=== PATIENT | female | born 1975 | race African-American/Black ===

== ENCOUNTER 2022-07-26 13:24 | Emergency (ER) | payer OTHER ==
[~2022-07-26] VITALS: Ht 167.6 cm; Wt 72.0 kg
[2022-07-26] MEDS ORDERED: ONDANSETRON HCL 4MG/2ML INJ IV ONE (15:15)
[2022-07-26] MEDS ORDERED: ASPIRIN 325MG EC TABLET PO ONE (15:15)
[2022-07-26 15:32] LABS: HEMATOCRIT. 29.7 % (36.0-48.0); HEMOGLOBIN. 9.8 g/dL (12.0-16.0); MEAN CORPUSCULAR HEMOGLOBIN 26.4 pg (28.0-32.0); MEAN CORPUSCULAR VOLUME 79.6 fL (81.0-99.0); RED BLOOD CELL COUNT 3.73 mill/uL (4.2-5.4); RED CELL DISTRIBUTION WIDTH 18.8 % (11.6-14.6)
[2022-07-26 15:35] LABS: HCG SCREEN NEGATIVE
[2022-07-26 15:42] LABS: CHLORIDE 106 mEq/L (98-107)
[2022-07-26 17:46] LABS: MEAN PLATELET VOLUME 7.2 fl (7.4-10.4); PLATELET 452 x1000/uL (130-400); PLATELET ESTIMATE INCREASED
[2022-07-26 18:12] VITALS: BP 125/75
== END 2022-07-26 18:14 | disposition home or self-care (01) ==
LOC: ER 13:24
DX: R07.89 Other chest pain (principal); K50.90 Crohn's disease, unspecified, without complications; Z87.891 Personal history of nicotine dependence; Z88.8 Allergy status to other drugs, medicaments and biological substances; Z88.0 Allergy status to penicillin
CPT/HCPCS: 36415; 71045; 80053; 83690; 83880; 84484; 84703; 85025; 93005; 96374; 99285; J2405